=== PATIENT | female | born 1955 | race Two or more races ===

== ENCOUNTER 2019-09-21 00:43 | Emergency (ER) | payer BC ==
[~2019-09-21] VITALS: Ht 149.9 cm; Wt 49.9 kg
[2019-09-21 01:05] VITALS: BP 125/71
[2019-09-21] MEDS ORDERED: SODIUM CHLORIDE 0.9% 1,000 ML IV ONE (01:15)
[2019-09-21] MEDS ORDERED: ETOMIDATE (2MG/ML) 20ML VIAL IV ONE (01:15)
[2019-09-21] MEDS ORDERED: SUCCINYLCHOLINE CHLORIDE 20 MG/ML 10ML VIAL IV ONE (01:15)
[2019-09-21] MEDS ORDERED: ALBUTEROL SULF 2.5 MG/0.5ML(0.5%) NEB SOLN NEB ONE (01:15)
[2019-09-21] MEDS ORDERED: cefTRIAXone 1GM/50ML D5W 50 ML IV ONE (01:15)
[2019-09-21] MEDS ORDERED: MIDAZOLAM DRIP 50 mg/50mL 50 ML IV SCH (01:23)
[2019-09-21] MEDS ORDERED: PROPOFOL 100 ML IV SCH (01:23)
[2019-09-21 01:28] LABS: Basophils # (auto) 0.1 uL; Basophils % (auto) 0.6 % (0.0-2.0); Eosinophils # (auto) 0 uL; Hematocrit 39.7 % (36.0-46.0); Hemoglobin 13.1 g/dL (12.2-16.2); Lymphocytes # (auto) 0.2 uL; Lymphocytes % (auto) 1.5 % (10.0-50.0); Mean Corpuscular Hemoglobin 30.5 pg (28.0-32.0); Mean Corpuscular Hgb Conc. 32.9 g/dL (32.0-36.0); Mean Corpuscular Volume 92.7 fL (80.0-100.0); Monocytes # (auto) 0.8 uL; Monocytes % (auto) 5.2 % (0.0-12.0); Neutrophils # (auto) 13.9 uL; Neutrophils % (auto) 92.7 % (37.0-80.0); Platelet Count (auto) 329 10^3/uL (140-450); Red Blood Cells 4.29 10^6/uL (4.0-5.20); Red Cell Distribution Width 14.5 % (11.8-14.3)
[2019-09-21] MEDS ORDERED: NOREPINEPHRINE 8 MG/250ML KIT 250 ML IV SCH (01:30)
[2019-09-21 01:43] LABS: INR 1.03 (0.9-1.15); Partial Thromboplastin Time 26.5 sec (23.64-32.05)
[2019-09-21 01:46] LABS: Urine Bacteria FEW /hpf (None Seen); Urine Blood TRACE /uL (Negative); Urine Hyaline Cast MANY /lpf (0 - 2); Urine Mucus FEW (None Seen); Urine Specific Gravity 1.023 (1.001-1.035); Urine WBC 3 /hpf (0 - 5)
[2019-09-21 01:53] LABS: Alanine Aminotransferase 28 U/L (13-56); Albumin 2.8 g/dL (3.4-5.0); Anion Gap 9 (5-15); Aspartate Aminotransferase 37 U/L (15-37); BUN/Creatinine Ratio 38.4; Blood Urea Nitrogen 33 mg/dL (7-18); Calcium 8.9 mg/dL (8.5-10.1); Carbon Dioxide 29 mmol/L (21-32); Chloride 91 mmol/L (98-107); GFR African American 86 mL/min; GFR Non-African American 71 mL/min; Glucose 195 mg/dL (74-106); Sodium 129 mmol/L (136-145)
[2019-09-21 01:57] LABS: Lactic Acid w/Reflex 2.1 mmol/L (0.4-2.0)
[2019-09-21 01:58] LABS: Alkaline Phosphatase 143 U/L (45-117); Bilirubin, Total 0.4 mg/dL (0.2-1.0); Total Protein 6.6 g/dL (6.4-8.2)
[2019-09-21 02:00] VITALS: BP 92/42
== END 2019-09-21 10:20 | disposition expired ==
LOC: EDBD 00:43 → ER 00:47
DX: J96.01 Acute respiratory failure with hypoxia (principal); C34.90 Malignant neoplasm of unspecified part of unspecified bronchus or lung
CPT/HCPCS: 31500; 36415; 36600; 70450; 71045; 71250; 72125; 74176; 80053; 81001; 82805; 83605; 83880; 84484; 85025; 85610; 85730; 87040; 93005; 94640; 96360; 99291; J2250; J7611; 94002